=== PATIENT | female | born 1975 | race Caucasian/White ===

== ENCOUNTER → 2021-11-19 | Outpatient (CLI) | payer OTHER | LOC: HEART CORB 09:30 | DX: R07.89 Other chest pain (principal); R00.2 Palpitations; R55 Syncope and collapse | CPT/HCPCS: 93306 ==

== ENCOUNTER → 2022-01-07 | Outpatient (CLI) | payer OTHER | LOC: HEART CORB 08:53 | DX: R07.2 Precordial pain (principal); R06.02 Shortness of breath | CPT/HCPCS: 78452; A9502; J2785 ==